=== PATIENT | male | born 1990 | race Caucasian/White ===

== ENCOUNTER 2016-08-09 16:15 | Emergency (ER) | payer SELFPAY ==
[~2016-08-09] VITALS: Ht 177.8 cm; Wt 68.0 kg
[2016-08-09] MEDS ORDERED: LORazepam 1 MG TABLET PO ONE (17:00)
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
[2016-08-09 18:09] VITALS: BP 114/79
== END 2016-08-09 18:21 | disposition home or self-care (01) ==
LOC: ER 16:15
DX: F41.9 Anxiety disorder, unspecified (principal)
CPT/HCPCS: 99284

== ENCOUNTER 2016-08-14 17:38 | Emergency (ER) | payer SELFPAY ==
[~2016-08-14] VITALS: Ht 177.8 cm; Wt 68.0 kg
[2016-08-14 18:07] VITALS: BP 110/58
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
== END 2016-08-14 20:42 | disposition left against medical advice (07) ==
LOC: EDBD 17:38 → ER 17:38
DX: F41.9 Anxiety disorder, unspecified (principal); M79.7 Fibromyalgia
CPT/HCPCS: 99284